=== PATIENT | male | born 1955 ===

== ENCOUNTER 2016-08-25 19:00 | Emergency (ER) | payer OTHER ==
[~2016-08-25] VITALS: Wt 227.0 kg
[2016-08-25] MEDS ORDERED: DIPHTH/TET/ACEL PERTUSS (ADULT) 0.5 ML VIAL IM* ONE (21:30)
[2016-08-25] MEDS ORDERED: HYDROCODONE/APAP (5/325) TAB PO ONE (21:30)
[2016-08-25] MEDS ORDERED: SILVER SULFADIAZINE 1% 25 GM CR TOP ONE (21:30)
[2016-08-25] MEDS ORDERED: IBUP-1542 PO (21:49)
[2016-08-25] MEDS ORDERED: HYDR-906 PO (21:49)
[2016-08-25] MEDS ORDERED: SSD1C20 TOP (21:49)
[2016-08-25 23:18] VITALS: BP 170/90; PULSE 85; RESP 20
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
== END 2016-08-25 23:19 | disposition home or self-care (01) ==
LOC: FTE 19:00
DX: T25.222A Burn of second degree of left foot, initial encounter (principal); I10 Essential (primary) hypertension; I50.9 Heart failure, unspecified; J44.9 Chronic obstructive pulmonary disease, unspecified; X11.8XXA Contact with other hot tap-water, initial encounter; Y92.9 Unspecified place or not applicable; Z23 Encounter for immunization
CPT/HCPCS: 16000; 90471; 90715; Z7502; Z7610